=== PATIENT | female | born 1995 | race African-American/Black ===

== ENCOUNTER 2018-09-16 14:35 | Observation (INO) | payer MEDICAID ==
[2018-09-16 16:26] LABS: Alcohol, Urine < 3.0 mg/dL (0-5); Amphetamine Screen, Urine NEGATIVE (NEGATIVE); Barbiturate Scree,Urine NEGATIVE (NEGATIVE); Benzodiazephine Screen, Urine NEGATIVE (NEGATIVE); Cannabinoid Screen, Urine NEGATIVE (NEGATIVE); Cocaine Screen, Urine NEGATIVE (NEGATIVE); Opiate Scree,Urine NEGATIVE (NEGATIVE); Phencyclidine Screen, Urine NEGATIVE (NEGATIVE)
== END 2018-09-16 16:50 | disposition home or self-care (01) | DRG 566 ==
LOC: LDRP 14:35
PROVIDERS: ADMIT Obstetrics & Gynecology; ATTEND Obstetrics & Gynecology
DX: O26.893 Other specified pregnancy related conditions, third trimester (principal); F17.210 Nicotine dependence, cigarettes, uncomplicated; M54.9 Dorsalgia, unspecified; R10.30 Lower abdominal pain, unspecified; O99.333 Smoking (tobacco) complicating pregnancy, third trimester; Z3A.34 34 weeks gestation of pregnancy
CPT/HCPCS: 59025; 76805; 80307; 81002; G0378

== ENCOUNTER 2023-09-03 18:48 | Observation (INO) | payer MEDICAID ==
[~2023-09-03] VITALS: Ht 157.5 cm; Wt 91.6 kg
[2023-09-03] MEDS ORDERED: PREN-96 PO (19:29)
== END 2023-09-03 20:38 | disposition home or self-care (01) ==
LOC: LDRP 18:48
PROVIDERS: ADMIT Obstetrics & Gynecology; ATTEND Obstetrics & Gynecology
DX: O47.1 False labor at or after 37 completed weeks of gestation (principal); Z3A.37 37 weeks gestation of pregnancy
CPT/HCPCS: 59025; 81002; 94760; G0378

== ENCOUNTER 2023-09-30 09:31 | Observation (INO) | payer MEDICAID ==
[~2023-09-30 09:31] MED LIST: PREN-96 PO
[2023-09-30 10:52] LABS: Fern Testing Negative
[2023-09-30] MEDS: LACTATED RINGER'S 1,000 ML IV ONE (12:02)
[2023-09-30 12:10] LABS: Amphetamine Screen, Urine Neg (NEGATIVE); Barbiturate Scree,Urine Neg (NEGATIVE); Benzodiazephine Screen, Urine Neg (NEGATIVE); Cocaine Screen, Urine Neg (NEGATIVE)
[2023-09-30 12:11] LABS: Cannabinoid Screen, Urine Neg (NEGATIVE); Opiate Scree,Urine Neg (NEGATIVE); Phencyclidine Screen, Urine Neg (NEGATIVE)
== END 2023-09-30 14:47 | disposition home or self-care (01) ==
LOC: UNDOADMOB 09:31 → LDRP 09:31
PROVIDERS: ADMIT Obstetrics & Gynecology; ATTEND Obstetrics & Gynecology
DX: O62.9 Abnormality of forces of labor, unspecified (principal); O36.8130 Decreased fetal movements, third trimester, not applicable or unspecified; O21.2 Late vomiting of pregnancy; O26.893 Other specified pregnancy related conditions, third trimester; R10.9 Unspecified abdominal pain; Z3A.39 39 weeks gestation of pregnancy; Z98.51 Tubal ligation status; Z79.899 Other long term (current) drug therapy
CPT/HCPCS: 59025; 76805; 80307; 81002; 84112; 96360; G0378; Q0114; 96365

== ENCOUNTER 2023-10-04 22:46 | Inpatient (IN) | payer MEDICAID ==
[~2023-10-04] VITALS: Ht 157.5 cm; Wt 91.2 kg
[2023-10-04] MEDS ORDERED: LIDOCAINE 2%HCL (LOCAL ANESTH.) INJ 20ML MDV IJ PRN (23:00)
[2023-10-04] MEDS ORDERED: miSOPROStol 100 mcg TAB SL PRN (23:00)
[2023-10-04] MEDS ORDERED: DIPHENOXYLATE W/ATROPINE 2.5 MG TAB PO PRN (23:00)
[2023-10-04] MEDS ORDERED: ONDANSETRON HCL 4 MG/2 ML VIAL IV PRN (23:00)
[2023-10-04] MEDS ORDERED: miSOPROStol 100 mcg TAB PR PRN (23:00)
[2023-10-04] MEDS ORDERED: PROMETHAZINE HCL 25 MG/ML 1ML IV PRN (23:00)
[2023-10-04] MEDS ORDERED: BUTORPHANOL TARTRATE 2 MG/1 ML VIAL IV PRN ×2 (23:00)
[2023-10-04] MEDS ORDERED: CARBOPROST TROMETHAMINE 250 MCG/1ML VIAL IM PRN (23:00)
[2023-10-04] MEDS: METHYLERGONOVINE MALEATE 0.2 MG/ML AMP IM ONE (23:15)
[2023-10-04 23:43] LABS: Basophils # (auto) 0 10 ^3/uL (0-0.2); Eosinophils # (auto) 0.1 10 ^3/uL (0-0.8); Lymphocytes # (auto) 1.7 10 ^3/uL (0.4-5.4); Mean Corpuscular Volume 79.6 fL (80.0-100.0); Monocytes # (auto) 0.8 10 ^3/uL (0-1.3)
[2023-10-04 23:45] LABS: Basophils % (auto) 0.3 % (0.0-2.0); Eosinophils % (auto) 0.8 % (0.0-7.0); Hematocrit 30.9 % (36.0-46.0); Lymphocytes % (auto) 17.9 % (10.0-50.0); Mean Corpuscular Hemoglobin 25.8 pg (28.0-32.0); Mean Corpuscular Hgb Conc. 32.3 g/dL (32.0-36.0); Monocytes % (auto) 8.4 % (0.0-12.0); Neutrophils % (auto) 72.6 % (37.0-80.0); Red Blood Cells 3.89 10^6/uL (4.0-5.20); Red Cell Distribution Width 15.1 % (11.8-14.3); White Blood Cell 9.6 10^3/uL (4.4-10.8)
[2023-10-04 23:48] LABS: Amphetamine Screen, Urine Neg (NEGATIVE); Barbiturate Scree,Urine Neg (NEGATIVE); Benzodiazephine Screen, Urine Neg (NEGATIVE); Cannabinoid Screen, Urine Neg (NEGATIVE); Cocaine Screen, Urine Neg (NEGATIVE); Opiate Scree,Urine Neg (NEGATIVE); Phencyclidine Screen, Urine Neg (NEGATIVE)
[2023-10-04 23:49] LABS: Albumin 3.7 g/dL (3.2-4.8); Alkaline Phosphatase 210 U/L (46-116); Anion Gap 9 (5-15); Aspartate Aminotransferase 13 U/L (13-40); Bilirubin, Total 0.6 mg/dL (0.2-1.0); Calcium 8.5 mg/dL (8.7-10.4); Carbon Dioxide 20 mmol/L (20-30); Chloride 109 mmol/L (98-107); Glucose 76 mg/dL (74-106); Potassium 3.4 mmol/L (3.5-5.1); Sodium 138 mmol/L (136-145); Total Protein 6.7 g/dL (5.7-8.2)
[2023-10-04 23:52] LABS: Alanine Aminotransferase < 9 U/L (7-40); BUN/Creatinine Ratio 12.2 (10.0-20.0); Blood Urea Nitrogen < 5 mg/dL (9-23)
[2023-10-04 23:59] LABS: Urine Bacteria MOD /hpf (None Seen); Urine Blood Negative /uL (Negative); Urine Clarity Clear (Clear); Urine Color Colorless (Yellow); Urine Hyaline Cast FEW /lpf (0 - 2); Urine Protein, UAD Negative (Negative); Urine Specific Gravity 1.004 (1.001-1.035); Urine Urobilinogen Normal (Negative); Urine WBC 6 /hpf (0 - 5); Urine pH 6.5 (5.0-8.0)
[2023-10-04 23:59] LABS: INR 1.02 (0.9-1.15); Partial Thromboplastin Time 27.4 SEC (24.5-34.5); Prothrombin Time 10.7 sec (9.3-11.8)
[2023-10-05] MEDS: miSOPROStol 50 MCG per PRE-CUT 1/2 TAB PO PRN (01:11)
[2023-10-05] MEDS: POTASSIUM CHL 20 Meq TABLET PO ONE (01:11)
[2023-10-05] MEDS: LACTATED RINGER'S 1,000 ML IV SCH (01:14)
[2023-10-05] MEDS: DERMOPLAST 60ML BOTTLE TOP PRN (06:39)
[2023-10-05] MEDS: WITCH HAZEL-GLYCERIN PAD TOP PRN (06:39)
[2023-10-05] MEDS: PHISODERM TOP SOLN 240ML BTL TOP PRN (06:39)
[2023-10-05] MEDS ORDERED: TERBUTALINE SULFATE 1 MG/ML 1ML VIAL SC PRN (06:45)
[2023-10-05] MEDS: LACT. RINGERS/OXYTOCIN 20UNITS 1,000 ML IV SCH (07:06)
[2023-10-05] MEDS: NALOXONE HCL 0.4 MG/ML VIAL IV ONE (08:30)
[2023-10-05] MEDS: ePHEDrine SULFATE 50 MG/ML AMP IV ONE (08:30)
[2023-10-05] MEDS: ROPIVACAINE 0.5% (5MG/ML) 20ML AMPULE IJ ONE (09:15)
[2023-10-05] MEDS: ROPIVACAINE HCL 200 ML ONE (09:57)
[2023-10-05] MEDS: LACT. RINGERS/OXYTOCIN 20UNITS 500 ML IV ONE ×2 (12:59→13:38)
[2023-10-05] MEDS ORDERED: ONDANSETRON ODT 4 MG TAB PO PRN (13:30)
[2023-10-05 15:20] VITALS: BP 108/70; PULSE 96; RESP 18; TEMP 97.8; O2SAT 100
[2023-10-05 19:07] VITALS: BP 119/76; PULSE 96; RESP 16; TEMP 97.9; O2SAT 99
[2023-10-05 23:00] VITALS: BP 107/65; PULSE 101; RESP 14; TEMP 98; O2SAT 98
[2023-10-05] MEDS: IBUPROFEN 600 MG TAB PO PRN (23:48)
[2023-10-06 03:00] VITALS: BP 96/61; PULSE 85; RESP 14; TEMP 97.8; O2SAT 98
[2023-10-06] MEDS: ACETAMINOPHEN 325 MG TAB PO PRN (03:49)
[2023-10-06] MEDS ORDERED: IBU600T PO (05:59)
[2023-10-06 07:03] VITALS: RESP 18
[2023-10-06 07:23] VITALS: BP 114/72; PULSE 84; RESP 16; TEMP 97.8; O2SAT 99
[2023-10-06 08:06] LABS: RPR Non Reactive (Non Reactive)
[2023-10-06 10:57] VITALS: BP 108/71; PULSE 86; RESP 17; TEMP 98.9; O2SAT 100
[2023-10-06] MEDS: MEASLES, MUMPS & RUBELLA VAC(MMRII) 0.5ML SC ONE (13:40)
[2023-10-07 19:06] LABS: Treponema pallidum Ab (FTA-Ab) Non Reactive (Non Reactive)
== END 2023-10-06 14:28 | disposition home or self-care (01) | DRG 560 ==
LOC: LDRP 22:46
PROVIDERS: ADMIT Obstetrics & Gynecology; ATTEND Obstetrics & Gynecology
PROC: 10E0XZZ Delivery of Products of Conception, External Approach (ICD-10-PCS; principal; 2023-10-05)
PROC: 3E0R3BZ Introduction of Anesthetic Agent into Spinal Canal, Percutaneous Approach (ICD-10-PCS; 2023-10-05)
PROC: 00HU33Z Insertion of Infusion Device into Spinal Canal, Percutaneous Approach (ICD-10-PCS; 2023-10-05)
DX: O77.0 Labor and delivery complicated by meconium in amniotic fluid (principal); Z37.0 Single live birth; Z3A.39 39 weeks gestation of pregnancy
CPT/HCPCS: 36415; 59025; 59409; 62282; 80053; 80307; 81001; 85025; 85610; 85730; 86592; 86850; 86900; 86901; 94760; 94762; 96360; 96361; 96365; 96366; 96372; G0378; J2590

== ENCOUNTER 2024-07-01 08:23 | Day surgery (SDC) | payer MEDICAID ==
[2024-06-27 10:04] LABS: Urine Bacteria None Seen /hpf (None Seen); Urine WBC None Seen /hpf (0 - 5)
[2024-06-27 10:07] LABS: Basophils # (auto) 0 10 ^3/uL (0-0.2); Basophils % (auto) 0.6 % (0.0-2.0); Eosinophils # (auto) 0 10 ^3/uL (0-0.8); Eosinophils % (auto) 0.7 % (0.0-7.0); Hematocrit 38.5 % (36.0-46.0); Hemoglobin 12.6 g/dL (12.2-16.2); Lymphocytes # (auto) 2.1 10 ^3/uL (0.4-5.4); Lymphocytes % (auto) 32.2 % (10.0-50.0); Mean Corpuscular Hemoglobin 29.3 pg (28.0-32.0); Mean Corpuscular Hgb Conc. 32.8 g/dL (32.0-36.0); Mean Corpuscular Volume 89.3 fL (80.0-100.0); Monocytes # (auto) 0.5 10 ^3/uL (0-1.3); Monocytes % (auto) 7.2 % (0.0-12.0); Neutrophils # (auto) 3.9 10 ^3/uL (1.6-8.6); Neutrophils % (auto) 59.3 % (37.0-80.0); Nucleated Red Blood Cells % 0.1 %; Platelet Count (auto) 259 10^3/uL (140-450); Red Blood Cells 4.31 10^6/uL (4.0-5.20); Red Cell Distribution Width 14.7 % (11.8-14.3); White Blood Cell 6.6 10^3/uL (4.4-10.8)
[2024-06-27 10:24] LABS: INR 1.04 (0.9-1.15); Partial Thromboplastin Time 27.1 SEC (24.5-34.5)
[2024-06-27 10:29] LABS: Urine Blood Negative /uL (Negative); Urine Clarity Clear (Clear); Urine Color Light-Yellow (Yellow); Urine Hyaline Cast FEW /lpf (0 - 2); Urine Protein, UAD Negative (Negative); Urine Specific Gravity 1.016 (1.001-1.035); Urine Urobilinogen Normal (Negative); Urine pH 6.5 (5.0-9.0)
[2024-06-27 10:59] LABS: Alanine Aminotransferase 12 U/L (7-40); Albumin 4.4 g/dL (3.2-4.8); Alkaline Phosphatase 139 U/L (46-116); Anion Gap 5 (5-15); Aspartate Aminotransferase 11 U/L (13-40); BUN/Creatinine Ratio 10.4 (10.0-20.0); Blood Urea Nitrogen 7 mg/dL (9-23); Calcium 9.9 mg/dL (8.7-10.4); Carbon Dioxide 24 mmol/L (20-31); Chloride 108 mmol/L (98-107); Glucose 82 mg/dL (74-106); Potassium 4.5 mmol/L (3.5-5.1); Sodium 137 mmol/L (136-145)
[2024-06-27 11:00] LABS: Bilirubin, Total 0.7 mg/dL (0.2-1.0); Total Protein 8.3 g/dL (5.7-8.2)
[~2024-07-01] VITALS: Ht 157.5 cm; Wt 90.3 kg
[2024-07-01] MEDS ORDERED: ceFAZolin 1GM/50ML 100 ML IV ONE (09:20)
[2024-07-01] MEDS ORDERED: GLYCOPYRROLATE 0.2 MG/ML 1ML VIAL ONE (10:55)
[2024-07-01] MEDS ORDERED: ROCURONIUM 10MG/ML 10ML VIAL IV ONE (10:55)
[2024-07-01] MEDS ORDERED: NEOSTIGMINE 1 MG/ML INJ (10mg/10ML VIAL) ONE (10:55)
[2024-07-01] MEDS ORDERED: LIDOCAINE 1% INJ PF 5ML AMP ONE (10:55)
[2024-07-01] MEDS ORDERED: KETAMINE 50mg/ML 1ml syringe ONE (10:55)
[2024-07-01] MEDS ORDERED: PROPOFOL 10 MG/ML 20 ML IV ONE (10:55)
[2024-07-01] MEDS ORDERED: MIDAZOLAM HCL 2MG/2ML 2ml VIAL (1mg/ml) ONE (10:55)
[2024-07-01] MEDS ORDERED: MEPERIDINE HCL (50 MG/ML) 1 ML VIAL ONE (10:55)
[2024-07-01] MEDS ORDERED: ONDANSETRON HCL 4 MG/2 ML VIAL ONE (10:55)
[2024-07-01] MEDS ORDERED: fentaNYL CITRATE 100 MCG/2 ML VL ONE (10:55)
[2024-07-01] MEDS ORDERED: SODIUM CHLORIDE LOCK 10 ML ONE (10:55)
[2024-07-01] MEDS ORDERED: METOCLOPRAMIDE HCL 5MG/ml INJ 2ml VIAL IV ONE (12:00)
[2024-07-01] MEDS ORDERED: HYDROmorphone HCL 2 MG/ML VL/or syr IV PRN ×2 (12:00)
[2024-07-01] MEDS ORDERED: KETOROLAC TROMETH 30 MG/ML 1ML VIAL IV ONE (12:00)
[2024-07-01] MEDS ORDERED: fentaNYL CITRATE 100 MCG/2 ML VL IV PRN (12:00)
[2024-07-01] MEDS ORDERED: MORPHINE SULFATE INJ 2 MG/ml SYRG IV PRN (12:00)
[2024-07-01] MEDS: LIDOCAINE W/ EPINEPHRINE 1% 20ML VIAL ONE (13:00)
[2024-07-01 13:10] VITALS: TEMP 98.1
[2024-07-01] MEDS ORDERED: HYDR1TAB97 PO (13:30)
--- NOTE | 2024-07-01 13:36 | DVHHP2 ---
MECHANICAL MANAGER CC & HPI Date Date of Admission: Jul 01, 2024 Chief Complaints: Reason for admission: Outpatient surgery: Laparoscopic BTL (Female Sterilization with Filshie clips) History of Present Complaints History of Present Complaints 29y [id number] patient requesting voluntary female sterilization LMP 06/13/24. Urine HCG neg. History of x 5. Patient has been properly counseled and declined alternative methods of contraception Past Medical History Cardiac: No pertinent Hx Pulmonary: No pertinent Hx Central Nervous System: No pertinent Hx GI: No pertinent Hx Hemotology/Oncology: No pertinent Hx Hepatobiliary: No pertinent Hx Psychiatric: No pertinent Hx Musculoskeletal: No pertinent Hx Rheumotologic: No pertinent Hx Infectious Disease: No peritnent Hx ENT: No pertinent Hx Renal/: No pertinent Hx Endocrine: No pertinent Hx Dermatology: No pertinent Hx Past Surgical History: No pertinent Hx MECHANICAL MANAGER History MECHANICAL MANAGER History MECHANICAL MANAGER History: Normal PAP 2022 Allergies: Coded Allergies: NO KNOWN ALLERGIES (Unverified , 03/10/12) Home Meds Active Scripts Hydrocodone-Acetaminophen (Hydrocodone/Acetaminophen 5-325 mg) 1 Tab Tab, 1 TAB PO Q6HPRN PRN for 5 Days, #20 TAB Prov:MT WHITE DO 07/01/24 Current Medications Current Medications Medications (Trade) Dose Ordered Sig/Aristides Route PRN Reason Start Time Stop Time Status Last Admin Fentanyl Citrate 25 mcg Q1HP PRN IV BREAKTHROUGH PAIN (7-10) 07/01/24 12:00 07/01/24 12:25 DC Hydromorphone HCl (Dilaudid Injection) 0.5 mg Q10M PRN IV SEVERE PAIN (7-10 PAIN SCALE) 07/01/24 12:00 07/01/24 12:41 DC Hydromorphone HCl (Dilaudid Injection) 0.25 mg Q10M PRN IV MODERATE PAIN (4-6 PAIN SCALE) 07/01/24 12:00 07/01/24 12:31 DC Morphine Sulfate 1 mg Q30M PRN IV SEVERE PAIN (7-10 PAIN SCALE) 07/01/24 12:00 07/01/24 14:01 Family History: Patient reports no known family medical history. Social History Denies EtOH, Drugs, or tobacco use Review of Systems Constitutional: No symptom reported Ears, Nose, & Throat: No symptom reported Eyes: No symptom reported Pulmonary/Respiratory: No symptom reported Cardiovascular: No symptom reported Gastrointestinal: No symptom reported Genitourinary: No symptom reported Musculoskeletal: No symptom reported Skin: No symptom reported Psychiatric: No symptom reported Endocrine: No symptom reported Hemotologic/Lymphatic: No symptom reported Physical Exam Physical Exam HEENT: NCAT Heart: Rhythm Normal Lungs: Clear Abdomen: Non tender Extremities: Normal Reflexes: Normal Managing Member/Pelvic Exam: External exam normal, Bimanual exam normal, Speculum exam normal Assessment and Plan Plan Assessment and Plan: Encounter for female sterilization Plan: Laparoscopic BTL (Female Sterilization with Filshie clips), possible laparotomy R/B/A discussed with patient and informed consent obtained Risks of 1% failure rate, risk of ectopic reviewed. Date of Service: Jul 01, 2024 Billing Provider: MT WHITE DO Common Visit Codes: [id number] INP/OBS CARE (MOD) MT WHITE DO Jul 01, 2024 13:36
--- NOTE | 2024-07-01 13:41 | DVHOP ---
DATE OF SURGERY: 07/01/2024 PREOPERATIVE DIAGNOSIS: Multiparity, requesting voluntary female sterilization. FINAL DIAGNOSIS: Multiparity requesting voluntary female sterilization. PROCEDURE PERFORMED: Operative laparoscopic bilateral tubal ligation via Filshie clip method. SURGEON: Aime Cedeno DO SUPERVISOR PIG MACHINE: None. TYPE OF ANESTHESIA: General endotracheal. ANESTHESIOLOGIST: Herlinda Barahona MD DESCRIPTION OF FINDINGS: Normal-sized uterus. Normal bilateral fallopian tubes. Normal ovaries. Normal intraabdominal and pelvic organs. Successful placement of bilateral Filshie clips at the mid-isthmic portion of bilateral fallopian tubes. TECHNICAL PROCEDURE: After informed consent was obtained, the patient was taken to the operating room where she underwent smooth induction with general anesthesia. She was placed in dorsal lithotomy position in Warner stirrups. The vagina, perineum, abdomen were thoroughly prepped and the patient sterilely draped in usual fashion. A pelvic exam was then performed under anesthesia. A weighted speculum was placed into the patient's vagina. The anterior lip of the cervix was grasped with a single-tooth tenaculum. Uterine cavity sounded to 8 cm. The cervix was gently dilated using Vitale dilators to accommodate a HUMI uterine manipulator. The manipulator was placed transcervically into the uterine cavity. The balloon inflated. The tenaculum and other instruments from the vagina were removed. Attention was then placed to the abdomen where the umbilicus was elevated with a Justice clamp. A 5 mm incision was made at the base of the umbilicus. A Veress needle was introduced through this incision into the peritoneal cavity. Intraperitoneal placement was confirmed by the hanging water drop test. Carbon dioxide gas was infused and pneumoperitoneum was obtained. Through the same incision, a 5 mm Optiview trocar was inserted into the abdomen. Intraperitoneal placement was confirmed directly with the laparoscope. Survey of the abdomen and pelvis revealed the above-noted findings. An 8 mm Optiview trocar was placed 2 cm above the pubic symphysis in the midline under direct visualization. We manipulated the uterus with the HUMI manipulator. The left and right fallopian tubes were identified and traced to their fimbriated ends. Using the Filshie clip applicator, a Filshie clip was placed on the left fallopian tube at the mid-isthmic portion. Blanching at the site of application was noted. No bleeding from the mesosalpinx. The procedure was repeated on the contralateral fallopian tube in similar fashion. Photos of the procedure were obtained. There was no bleeding from the mesosalpinx. Survey of the abdomen and pelvis revealed normal findings as described above. At this point, the carbon dioxide gas was removed from the patient's abdomen and the trocars removed under direct visualization. Next, the skin incisions were closed with 3-0 Monocryl in subcuticular fashion. The skin incisions were each injected with 10 mL of 1% lidocaine with epinephrine. Then, a thin layer of Dermabond was placed over the two skin incisions. The transcervical manipulator was removed from the patient's uterus with no bleeding from the cervix noted. The patient was then taken out of lithotomy position, awakened, and taken to recovery room in stable condition. INTRAOPERATIVE COMPLICATIONS: None. ESTIMATED BLOOD LOSS: Less than 10 mL. POSTOPERATIVE CONDITION: Stable. SPECIMENS: None. Photodocumentation only. COMPLICATIONS: None. MEDICATIONS: The patient received 2 grams of Ancef prior to skin incision. DO BRIAN Avila/ELIZABETH TID: [id number] RECEIPT: [id number]
[2024-07-01 14:20] VITALS: BP 111/67; PULSE 77; RESP 18; O2SAT 100
== END 2024-07-01 14:20 | disposition home or self-care (01) ==
LOC: SUR 08:23
PROVIDERS: ATTEND Obstetrics & Gynecology
DX: Z30.2 Encounter for sterilization (principal); F41.9 Anxiety disorder, unspecified; E66.9 Obesity, unspecified; Z68.36 Body mass index [BMI] 36.0-36.9, adult; Z86.2 Personal history of diseases of the blood and blood-forming organs and certain disorders involving the immune mechanism
CPT/HCPCS: 36415; 58671; 80053; 81001; 81025; 84702; 85025; 85610; 85730; 86850; 86900; 86901; A4264; J0690; J2175; J2250; J2405; J2704; J3010